=== PATIENT | female | born 1965 | race Caucasian/White ===

== ENCOUNTER → 2016-11-27 | Outpatient (CLI) | payer BC ==
[~2016-11-27] MED LIST: ASPIRIN 81M81 MG/TA2 PO; FISH OIL 1000MG1 CAP PO; HCTZ 25MG TAB25 MG PO; JANUMET 1000 MG1 TA1 PO; LIPITOR 40MG TA40 MG PO; SYNTHROID0.137 MG PO; VICTOZA6 MG/ML SQ; ZESTRIL 10MG10 MG PO
== END ==
LOC: MC.RAD 11:11
DX: Z12.31 Encounter for screening mammogram for malignant neoplasm of breast (principal)

== ENCOUNTER 2017-01-15 12:51 | Day surgery (SDC) | payer BC ==
[~2017-01-15] VITALS: Ht 152.4 cm; Wt 79.2 kg
[~2017-01-15 12:51] MED LIST changes: -VICTOZA6 MG/ML SQ
[2017-01-15] MEDS ORDERED: VICTOZA6 MG/ML SQ (13:35)
[2017-01-15 13:40] VITALS: BP 119/78; PULSE 78; TEMP 98.1
[2017-01-15 15:25] VITALS: BP 107/81; PULSE 77; TEMP 97.7
[2017-01-15 15:40] VITALS: BP 114/78; PULSE 79
[2017-01-15 15:55] VITALS: BP 109/68; PULSE 65
== END 2017-01-15 16:00 | disposition home or self-care (01) ==
LOC: SDCO 12:51
DX: Z12.11 Encounter for screening for malignant neoplasm of colon (principal); D12.5 Benign neoplasm of sigmoid colon; K64.0 First degree hemorrhoids; I10 Essential (primary) hypertension; E11.9 Type 2 diabetes mellitus without complications; E03.9 Hypothyroidism, unspecified; E78.5 Hyperlipidemia, unspecified; B35.1 Tinea unguium; Z90.711 Acquired absence of uterus with remaining cervical stump; Z79.84 Long term (current) use of oral hypoglycemic drugs; Z23 Encounter for immunization; Z80.3 Family history of malignant neoplasm of breast; Z80.0 Family history of malignant neoplasm of digestive organs
CPT/HCPCS: OP; J2250; J2405; J3010; J7030

== ENCOUNTER → 2018-05-06 | Outpatient (CLI) | payer BC ==
[~2018-05-06] MED LIST changes: +VICTOZA6 MG/ML SQ
== END ==
LOC: MC.RAD 11:04
DX: Z12.31 Encounter for screening mammogram for malignant neoplasm of breast (principal)

== ENCOUNTER → 2019-05-08 | Outpatient (CLI) | payer BC, OTHER | LOC: MC.RAD 13:37 | DX: Z12.31 Encounter for screening mammogram for malignant neoplasm of breast (principal); Z00.00 Encounter for general adult medical examination without abnormal findings ==

== ENCOUNTER → 2020-06-20 | Outpatient (CLI) | payer BC, OTHER | LOC: MC.RAD 06-17 11:00 | DX: Z12.31 Encounter for screening mammogram for malignant neoplasm of breast (principal) ==

== ENCOUNTER 2021-09-08 09:08 | Day surgery (SDC) | payer BC, OTHER ==
[~2021-09-08] VITALS: Ht 152.4 cm; Wt 72.3 kg
[2021-09-08 09:24] VITALS: BP 136/81; PULSE 76; TEMP 97.1
[2021-09-08] MEDS ORDERED: SYNTHROID 0.10.15 MG PO (09:29)
[2021-09-08] MEDS ORDERED: COMPLETE MULTI1 TAB PO (09:30)
[2021-09-08] MEDS ORDERED: GLUCOTROL10 MG PO (09:30)
[2021-09-08] MEDS ORDERED: VITAMIN B12 781 TAB PO (09:30)
[2021-09-08] MEDS ORDERED: GLUCOPHAGE500 MG/TAB PO (09:31)
[2021-09-08] MEDS ORDERED: JANUVIA 100MG100 MG PO (09:31)
[2021-09-08] MEDS ORDERED: MOBIC15 MG PO (09:32)
[2021-09-08 11:00] VITALS: BP 105/87; PULSE 70; TEMP 97
--- NOTE | 2021-09-08 11:00 | NUR ---
Patient is alert and oriented x3. Vitals obtained. Report obtained from ANTONINA Mccormick. The patient requested Sprite and a warm muffin to eat. Her mother requested Pepsi and a warm muffin. Call bejarano is at bedside and within reach. Will continue to monitor per intervals.
--- NOTE | 2021-09-08 11:05 | NUR ---
was in to speak with the patient.
[2021-09-08 11:15] VITALS: BP 136/81; PULSE 73
--- NOTE | 2021-09-08 11:15 | NUR ---
Vitals obtained. The patient is tolerating her muffin and ice water well. Denies neusea. No vomiting.
[2021-09-08 11:30] VITALS: BP 111/64; PULSE 65
--- NOTE | 2021-09-08 11:30 | NUR ---
Vitals obtained. IV discontinued. Catheter tip intact. Pressure dressing applied. No redness or swelling noted. Discharge instructions and educational material was reviewed. The patient and her mother verbalized understanding and the patient signed the related paperwork. The patient denied needing assistance changing into her personal clothes.
--- NOTE | 2021-09-08 11:36 | NUR ---
The patient used the callbell to notify the RN that she is done changing. The patient was escorted out to the patient entrence by ANTONINA Booth. Her mother has the discharge packet and personal belongings. The patient was transferred into the care of her mother, who is present to drive.
== END 2021-09-08 11:40 | disposition home or self-care (01) ==
LOC: SDCO 09:08
DX: Z12.11 Encounter for screening for malignant neoplasm of colon (principal); D12.5 Benign neoplasm of sigmoid colon; K57.30 Diverticulosis of large intestine without perforation or abscess without bleeding; I10 Essential (primary) hypertension; I25.10 Atherosclerotic heart disease of native coronary artery without angina pectoris; G47.33 Obstructive sleep apnea (adult) (pediatric); M19.90 Unspecified osteoarthritis, unspecified site; E11.9 Type 2 diabetes mellitus without complications; E03.9 Hypothyroidism, unspecified; E78.5 Hyperlipidemia, unspecified; Z99.89 Dependence on other enabling machines and devices; Z86.010 Personal history of colon polyps; Z79.84 Long term (current) use of oral hypoglycemic drugs; Z79.899 Other long term (current) drug therapy; Z79.890 Hormone replacement therapy
CPT/HCPCS: J2704; J7030

== ENCOUNTER 2021-09-26 12:53 | Emergency (ER) | payer BC, OTHER ==
[~2021-09-26] VITALS: Ht 152.4 cm; Wt 71.4 kg
[~2021-09-26 12:53] MED LIST changes: +COMPLETE MULTI1 TAB PO; +GLUCOPHAGE500 MG/TAB PO; +GLUCOTROL10 MG PO; +JANUVIA 100MG100 MG PO; +MOBIC15 MG PO; +SYNTHROID 0.10.15 MG PO; +VITAMIN B12 781 TAB PO
[2021-09-26 13:00] VITALS: TEMP 97.7
[2021-09-26 14:59] VITALS: BP 149/91; PULSE 78
== END 2021-09-26 14:59 | disposition home or self-care (01) ==
LOC: COL.ER 12:53
DX: T26.91XA Corrosion of right eye and adnexa, part unspecified, initial encounter (principal); S05.01XA Injury of conjunctiva and corneal abrasion without foreign body, right eye, initial encounter; X58.XXXA Exposure to other specified factors, initial encounter

== ENCOUNTER 2022-11-01 14:45 | Outpatient (RCR) | payer OTHER ==
[~2022-11-01 14:45] MED LIST changes: +BRILINTA90 MG PO; +IMDUR 30MG30 MG/TAB PO; +IMDUR 60MG60 MG/TAB PO; +LIPITOR 80MG80 MG PO; +RANEXA 500MG T500 MG PO; +SYNTHROID0.137 MG
== END 2022-11-02 | disposition home or self-care (01) ==
LOC: WSOH
DX: S00.83XA Contusion of other part of head, initial encounter (principal); S60.222A Contusion of left hand, initial encounter; S80.01XA Contusion of right knee, initial encounter; S06.6X0A Traumatic subarachnoid hemorrhage without loss of consciousness, initial encounter; W10.8XXA Fall (on) (from) other stairs and steps, initial encounter; Y99.0 Civilian activity done for income or pay; E11.9 Type 2 diabetes mellitus without complications; E78.00 Pure hypercholesterolemia, unspecified; E03.9 Hypothyroidism, unspecified

== ENCOUNTER → 2023-01-03 | Outpatient (CLI) | payer BC, OTHER | LOC: MC.RAD 06:54 | DX: Z12.31 Encounter for screening mammogram for malignant neoplasm of breast (principal) ==

== ENCOUNTER → 2023-08-16 | Outpatient (CLI) | payer BC, OTHER | LOC: COL.RAD 06:36 | DX: D35.02 Benign neoplasm of left adrenal gland (principal) | CPT/HCPCS: Q9967 ==

== ENCOUNTER → 2024-03-27 | Outpatient (CLI) | payer BC, OTHER | LOC: MC.RAD 10:49 | DX: Z12.31 Encounter for screening mammogram for malignant neoplasm of breast (principal); N64.89 Other specified disorders of breast ==

== ENCOUNTER → 2024-04-03 | Outpatient (CLI) | payer BC | LOC: MC.RAD 12:46 | DX: Z12.31 Encounter for screening mammogram for malignant neoplasm of breast (principal) ==